=== PATIENT | male | born 1995 | race Caucasian/White ===

== ENCOUNTER 2024-11-08 09:41 | Emergency (ER) | payer SELFPAY ==
[2024-11-08 09:44] VITALS: BP 130/74; PULSE 90; RESP 18; TEMP 36.8; O2SAT 98
[2024-11-08 09:46] VITALS: BP 130/74; PULSE 90; RESP 18; TEMP 36.8; O2SAT 98
--- NOTE | 2024-11-08 09:49 | W.ED.GENAD ---
Discharge Plan Disposition Patient Disposition: Home Condition: Stable Discharge Details Clinical Impression: Dental infection Primary Care Provider: None,None ED Provider: Kenrick Walter Home Meds and New Rx's Prescriptions: New amoxicillin-pot clavulanate 875-125 mg tablet 1 tab PO BID 7 Days Qty: 14 0RF Discharge Instructions Instructions: Dental Pain, Amoxicillin and Clavulanate Additional Instructions: You were seen in the emergency department for your dental infection with some severe dental cavities and decay. I have sent a prescription for Augmentin to [place] pharmacy [place], please start this and follow-up with your dentist. Use topicals like Anbesol and clove oil, please use therapeutic dosing of Tylenol (acetamenophen) & Advil (ibuprofen) in an alternating fashion as follows: Take 1000mg of Tylenol every 6 hours without missing doses- that is 4 times per day. Nursing Home in between the Tylenol dosings, take 400-600mg of Advil also on a 6 hour schedule, that is also 4 times per day. The daily maximum dosing of Tylenol is 4000mg, and the daily maximum dosing of Advil is 2400mg. This is safe to do for weeks. Please note that some common cold medications & prescription pain medications may contain acetamenophen and you need to read OTC drug labels and factor that in to maximum daily dosings. Return to the emergency department for any excessive drooling, vocal changes, inability to open or close your jaw. Stand Alone Forms: Work Release Discharge Data Discharge Date/Time-TO BE ENTERED AT DEPARTURE: 11/08/24 10:29 HPI General Date/Time Provider Initiated Documentation: 11/08/24 09:48. HPI Narrative: 29 year-old male presents to ED today by POV/ambulating with a chief complaint of dental pain with onset 2 days ago. Quality described as anterior pain in the gums above the front 4 teeth, going up into his cheek, no radiation to fever, trismus, vocal changes, drooling, neck swelling, body aches, headache. Severity is described as moderate. Palliating factors include nothing specific. Provoking factors include nothing specific. Patient not anticoagulated. Related Data Home Medications ?Medication ?Instructions ?Recorded ?Confirmed amoxicillin 875 mg-potassium 1 tab PO BID 7 days #14 tabs 11/08/24 clavulanate 125 mg tablet Previous Rx's ?Medication ?Instructions ?Recorded amoxicillin 875 mg-potassium 1 tab PO BID 7 days #14 tabs 11/08/24 clavulanate 125 mg tablet General Stated Complaint: DentalOral FABIANO: 4 Review of Systems All systems reviewed & are unremarkable except as noted in HPI and below Exam Narrative Exam Narrative: GENERAL APPEARANCE: Well-nourished, non-toxic, awake and alert, atraumatic, no acute distress. SKIN: Warm, pink, dry, intact, without rashes/lesions/ulcerations. HEAD: Normocephalic, atraumatic, normal hair distribution for gender/age. EYES: Normal conjunctiva, no exudates on lids/lashes. ENT: Nares patent, no circumoral cyanosis, no facial swelling, diffusely poor dentition without visible gingival abscess, no trismus, no vocal changes, no , No maxillary sinus tenderness NECK: Supple, trachea midline, painless cervical ROM. LUNGS/CHEST: Non-labored respirations, normal A/P diameter, symmetrical expansion, no chest wall deformity HEART (CV/PV): No peripheral edema, no JVD. ABDOMEN: Soft, non-distended, no guarding. MSK: Normal ROM, no swelling/deformity to bilateral UEs or LEs, moving all extremities without weakness, no cyanosis, spine midline without tenderness, normal curvature. NEURO: Mental Status AAOx4 - alert to person, place, time, events No facial droop, no forehead involvement. Motor: No focal weakness - strength 5/5 in bilateral UEs and LEs, proximal and distal, symmetric. Sensory: sensation intact to light touch globally. Gait normal: patient ambulated without ataxia into ED room. PSYCH: euthymic, cooperative, pleasant, appropriate speech Course Vital Signs Vital signs: Vital Signs Temperature 36.8 C 11/08/24 09:44 Pulse 90 11/08/24 09:44 Respiratory Rate 18 11/08/24 09:44 Blood Pressure 130/74 11/08/24 09:44 Pulse Oximetry 98 11/08/24 09:44 Temperature 36.8 C 11/08/24 09:46 Temperature Source Oral 11/08/24 09:46 Pulse 90 11/08/24 09:46 Respiratory Rate 18 11/08/24 09:46 Blood Pressure 130/74 11/08/24 09:46 Pulse Oximetry 98 11/08/24 09:46 Medical Decision Making This dictation utilizes [id number] dictation software and may contain unedited grammatical errors. 29 year-old male presents to ED today by POV/ambulating with a chief complaint of dental pain with onset 2 days ago. Quality described as anterior pain in the gums above the front 4 teeth, going up into his cheek, no radiation to fever, trismus, vocal changes, drooling, neck swelling, body aches, headache. Severity is described as moderate. Palliating factors include nothing specific. Provoking factors include nothing specific. Patients' medical history: Negative, otherwise healthy. Family and social history: Noncontributory. Pertinent exam findings / vital signs include diffusely poor dentition with no clear gingival abscess, no trismus, no vocal changes, no maxillary sinus erythema or swelling. Differential / pathologies of concern include dental infection. Diagnostic studies of: -None. Interventions of: -Augmentin Rx. ED Course/Assessment/Plan: 29-year-old male with diffusely poor dentition presents for central upper gingival irritation and pain, no clear abscess on exam, has no signs of deep space infection, started on Augmentin and recommend at home conservative management evaluates dental follow-up, strict return criteria for decreased range of motion of jaw, vocal changes, neck swelling, or other emergent concerns. Findings not consistent with deep space infection, gingival abscess. Disposition of dental infection. Patient verbalized understanding of the plan and return to ED criteria and engaged in shared decision making. Medical Records Medical records reviewed: Yes I reviewed the patient's medical records. PFSH All Active Problems (Updated 11/08/24 @ 10:15 by CARLOS Cardenas) Dental infection (Acute) Social History Smoking/Tobacco Use Status: Never Smoking risk assessment performed?: Yes Alcohol Intake: never Drug use: Never Substance use type: does not use Do you feel safe at home: Yes Do you feel safe in your relationship?: Yes
[2024-11-08 10:26] VITALS: BP 140/79; PULSE 68; RESP 16; O2SAT 100
== END 2024-11-08 10:29 | disposition home or self-care (01) ==
LOC: ER 10:32
PROVIDERS: Emergency Provider Physician Assistant
DX: K04.7 Periapical abscess without sinus (principal)
CPT/HCPCS: 99283